=== PATIENT | male | born 1985 | race African-American/Black ===

== ENCOUNTER 2023-05-02 15:20 | Emergency (ER) | payer BC ==
[2023-05-02] MEDS ORDERED: MORPHINE 4 MG/ML SYR ONE ×2 (15:52→20:11)
[2023-05-02] MEDS ORDERED: ONDANSETRON 4 MG/2 ML VIAL ONE (15:52)
[2023-05-02] MEDS ORDERED: NA CHLORIDE 0.9% 1,000 ML ONE ×2 (15:52→20:11)
[2023-05-02 16:31] LABS: Specific Gravity 1.026 (1.005-1.030); Urine Bilirubin NEGATIVE (Negative); Urine Blood Negative (Negative); Urine Clarity Clear (Clear); Urine Color Light-Yellow (Yellow); Urine Glucose NEGATIVE (Negative); Urine Protein NEGATIVE (Negative); Urine Urobilinogen Normal (Normal); Urine pH 5.5 (5.0-7.0)
[2023-05-02 16:32] LABS: Absolute Lymphocytes (CBC) 1.3 K/uL (0.7-4.9); Hematocrit 41.2 % (39.6-49.0); Lymphocytes % 9.6 % (15.3-44.8); MCV 78.9 fL (80-100); MPV 8.1 fL (7.6-11.3); RBC Red Blood Cell Count 5.23 M/uL (4.33-5.43)
[2023-05-02 16:48] LABS: Albumin 3.7 g/dL (3.4-5.0); Bilirubin Total 0.5 mg/dL (0.2-1.0); Potassium 3.6 mEq/L (3.5-5.1); Protein, Total 8.3 g/dL (6.4-8.2)
--- NOTE | 2023-05-02 19:12 | RAD REPORT ---
EXAM DESCRIPTION: CTAbdomen Pelvis W Contrast - 05/02/2023 6:47 pm CLINICAL HISTORY: Abdominal pain. RLQ PAIN COMPARISON: No comparisons TECHNIQUE: Biphasic CT imaging of the abdomen and pelvis was performed with 100 ml non-ionic IV cont rast. All CT scans are performed using dose optimization technique as appropriate and may include automated exposure control or mA/KV adjustment according to patient size. FINDINGS: The lung bases are clear. The liver, spleen, pancreas, adrenal glands and kidneys are within normal limits. No bowel obstruction, free air, free fluid or abscess. Significant inflammation is seen with wall thi ckening and mural edema involving the cecum and ascending colon compatible with colitis. The appendix is normal. A few mildly enlarged right lower quadrant lymph nodes. No suspicious bony findings. IMPRESSION: Moderately severe colitis is seen involving the cecum and ascending colon.
[2023-05-02] MEDS ORDERED: METRONIDAZOLE 500mg IVPB 500 MG/100 ML BAG IV ONE (20:11)
[2023-05-02] MEDS ORDERED: CIPROFLOXACIN 400mg IV 400 MG/200 ML BAG IV ONE (20:11)
--- NOTE | 2023-05-02 21:30 | ER ---
Nurse's Notes [facility] Name: Yana Blevins Age: 37 yrs Sex: Male : 1985 Arrival Date: 05/02/2023 Time: 15:20 Bed 14 Private MD: Diagnosis: Indeterminate colitis Presentation: 05/02 15:35 Chief complaint: Patient states: Pt reports RUQ abdominal pain onset yesterday while cm10 resting. Patient denies nausea and vomiting. Pt reports diarrhea X2 episodes today. Coronavirus screen: Vaccine status: Patient reports receiving the 2nd dose of the covid vaccine. 15:35 Method Of Arrival: Ambulatory cm10 15:35 Ebola Screen: No symptoms or risks identified at this time. cm10 15:36 Initial Sepsis Screen: Does the patient meet any 2 criteria? No. Patient's initial cm10 sepsis screen is negative. Does the patient have a suspected source of infection? No. Patient's initial sepsis screen is negative. Risk Assessment: Do you want to hurt yourself or someone else? Patient reports no desire to harm self or others. Onset of symptoms was May 01, 2023. 15:36 Acuity: VIRA 3 cm10 Triage Assessment: 15:37 General: Appears in no apparent distress. comfortable, Behavior is calm, cooperative, cm10 appropriate for age. Historical: - Allergies: 15:36 No Known Allergies; cm10 - Home Meds: 15:36 None [Active]; cm10 - PMHx: 15:36 None; cm10 - PSHx: 15:36 None; cm10 - Immunization history:: Adult Immunizations unknown. - Social history:: Smoking status: unknown. Screenin:56 [facility] ED Fall Risk Assessment (Adult) History of falling in the last 3 months, kc6 including since admission No falls in past 3 months (0 pts) Confusion or Disorientation No (0 pts) Intoxicated or Sedated No (0 pts) Impaired Gait No (0 pts) Mobility Assist Device Used No (0 pt) Altered Elimination No (0 pt) Score/Fall Risk Level 0 - 2 = Low Risk Oriented to surroundings, Maintained a safe environment, Educated pt \T\ family on fall prevention, incl call for assistance when getting out of bed, Assessed \T\ reinforced patient's understanding of fall precautions, Hourly rounding (assess needs \T\ fall precautionary measures) done. Abuse screen: Denies threats or abuse. Denies injuries from another. Nutritional screening: No deficits noted. Tuberculosis screening: No symptoms or risk factors identified. Assessment: 15:56 General: Appears in no apparent distress. comfortable, Behavior is calm, cooperative, kc6 appropriate for age. Pain: Complains of pain in right upper quadrant. Neuro: Level of Consciousness is awake, alert, obeys commands, Oriented to person, place, time, situation, Appropriate for age. Cardiovascular: Capillary refill < 3 seconds. Respiratory: Airway is patent Trachea midline Respiratory effort is even, unlabored, Respiratory pattern is regular, symmetrical. GI: Abdomen is flat, non-distended, Bowel sounds present X 4 quads. Abd is soft X 4 quads Abdomen is tender to palpation in right upper quadrant Reports diarrhea, Patient currently denies nausea, vomiting. 16:51 Reassessment: Patient appears in no apparent distress at this time. No changes from kc6 previously documented assessment. Patient and/or family updated on plan of care and expected duration. Pain level reassessed. Patient is alert, oriented x 3, equal unlabored respirations, skin warm/dry/pink. Patient states feeling better. Patient states symptoms have improved. 17:38 Reassessment: Patient appears in no apparent distress at this time. No changes from kc6 previously documented assessment. Patient and/or family updated on plan of care and expected duration. Pain level reassessed. Patient is alert, oriented x 3, equal unlabored respirations, skin warm/dry/pink. 18:32 Reassessment: Patient appears in no apparent distress at this time. No changes from kc6 previously documented assessment. Patient and/or family updated on plan of care and expected duration. Pain level reassessed. Patient is alert, oriented x 3, equal unlabored respirations, skin warm/dry/pink. 19:15 Reassessment: Patient appears in no apparent distress at this time. Patient and/or jb4 family updated on plan of care and expected duration. Pain level reassessed. Patient is alert, oriented x 3, equal unlabored respirations, skin warm/dry/pink. 20:30 Reassessment: Patient appears in no apparent distress at this time. Patient and/or jb4 family updated on plan of care and expected duration. Pain level reassessed. Patient is alert, oriented x 3, equal unlabored respirations, skin warm/dry/pink. 21:40 Reassessment: Patient appears in no apparent distress at this time. Patient and/or jb4 family updated on plan of care and expected duration. Pain level reassessed. Patient is alert, oriented x 3, equal unlabored respirations, skin warm/dry/pink. Patient states feeling better. Vital Signs: 15:35 BP 118 / 73; Pulse 65; Resp 18; Temp 99.5(O); Pulse Ox 100% on R/A; Weight 64.86 kg cm10 (R); Height 6 ft. 1 in. (R); Pain 8/10; 16:51 BP 126 / 81; Pulse 68; Resp 18 S; Pulse Ox 99% on R/A; Pain 4/10; kc6 17:38 BP 116 / 80; Pulse 70; Resp 17 S; Pulse Ox 99% on R/A; kc6 18:33 BP 119 / 79; Pulse 60; Resp 17 S; Pulse Ox 100% on R/A; kc6 20:00 BP 124 / 78; Pulse 72; Resp 16; Pulse Ox 100% on R/A; jb4 21:15 BP 119 / 80; Pulse 60; Resp 16; Pulse Ox 98% on R/A; jb4 15:35 Body Mass Index 18.87 (64.86 kg, 185.42 cm) cm10 15:35 Pain Scale: Adult cm10 16:51 Pain Scale: Adult kc6 ED Course: 15:25 Patient arrived in ED. im 15:26 Marvel Jacob PA is PHCP. cp 15:26 Radha Spencer MD is Attending Physician. cp 15:36 Triage completed. cm10 15:36 Arm band placed on Patient placed in an exam room, on a stretcher. cm10 15:43 Krysta Durham, RN is Primary Nurse. ld1 15:43 Urinalysis w/ reflexes Sent. ld1 15:43 Lipase Sent. ld1 15:43 CMP Sent. ld1 15:43 CBC with Diff Sent. ld1 15:47 Charmaine Barrera, CARLYN is Primary Nurse. kc6 15:50 Inserted saline lock: 20 gauge in right upper arm, using aseptic technique. Blood ld1 collected. 15:56 Patient has correct armband on for positive identification. Bed in low position. Call kc6 light in reach. Side rails up X2. Adult w/ patient. 18:48 CT Abd/Pelvis - PO and IV Contrast In Process Unspecified. EDMS 20:00 Inserted saline lock: 20 gauge in left forearm, using aseptic technique. jb4 20:00 First set of blood cultures drawn by me. jb4 20:15 Second set of blood cultures drawn by me. jb4 21:28 Joni Sun MD is Referral Physician. cp 21:41 No provider procedures requiring assistance completed. IV discontinued, intact, jb4 bleeding controlled, No redness/swelling at site. Pressure dressing applied. Administered Medications: 15:49 Drug: NS 0.9% IV 1000 ml Route: IV; Rate: 1 bolus; Site: right upper arm; ld1 16:52 Follow up: Response: No adverse reaction; IV Status: Completed infusion; IV Intake: kc6 1000ml 15:49 Drug: Ondansetron IVP 4 mg Route: IVP; Site: right upper arm; ld1 16:52 Follow up: Response: No adverse reaction kc6 15:50 Drug: morphine IVP or IV 4 mg Route: IVP; Infused Over: 4 mins; Site: right upper arm; ld1 16:51 Follow up: Response: No adverse reaction; Pain is decreased; RASS: Alert and Calm (0) kc6 20:08 Drug: NS 0.9% IV 1000 ml Route: IV; Rate: 1 bolus; Site: right antecubital; jb4 20:08 Drug: morphine IVP or IV 4 mg Route: IVP; Infused Over: 4 mins; Site: right antecubital;jb4 20:27 Drug: Ciprofloxacin IVPB 400 mg Volume: 200 ml; Route: IVPB; Infused Over: 60 mins; jb4 Site: right antecubital; 20:27 Drug: metroNIDAZOLE IVPB 500 mg Volume: 100 ml; Route: IVPB; Infused Over: 30 mins; jb4 Site: left forearm; Medication: 21:15 VIS not applicable for this client. jb4 Intake: 16:52 IV: 1000ml; Total: 1000ml. kc6 Outcome: 21:29 Discharge ordered by . cp 21:41 Discharged to home ambulatory. jb4 21:41 Condition: stable 21:41 Discharge instructions given to patient, Instructed on discharge instructions, follow up and referral plans. no drinking with medication, medication usage, Demonstrated understanding of instructions, follow-up care, medications, Prescriptions given X 4. 21:41 Patient left the ED. jb4 Signatures: Dispatcher [employer] EDMS Marvel Jacob PA PA cp Bryson, James RN RN jb4 Krysta Durham RN RN ld1 Charmaine Barrera RN RN kc6 Rylee Cisneros Clarissa RN RN cm10
--- NOTE | 2023-05-02 21:30 | EDPHYS ---
Physician Documentation [facility] Name: Yana Blevins Age: 37 yrs Sex: Male : 1985 Arrival Date: 05/02/2023 Time: 15:20 Bed 14 Private MD: ED Physician Radha Spencer HPI: 05/02 15:45 This 37 yrs old Black Male presents to ER via Ambulatory with complaints of Abdominal cp Pain. 15:45 The patient presents with abdominal pain. Onset: The symptoms/episode began/occurred cp yesterday, and became worse today. The symptoms radiate to right back. Associated signs and symptoms: Pertinent positives: 2 episodes of diarrhea, Pertinent negatives: fever, testicular pain, vomiting. The symptoms are described as constant. Modifying factors: the symptoms are aggravated by pressure. 15:45 Severity of pain: in the emergency department the pain is unchanged despite home cp interventions. 15:45 The patient has not experienced similar symptoms in the past. cp Historical: - Allergies: 15:36 No Known Allergies; cm10 - Home Meds: 15:36 None [Active]; cm10 - PMHx: 15:36 None; cm10 - PSHx: 15:36 None; cm10 - Immunization history:: Adult Immunizations unknown. - Social history:: Smoking status: unknown. ROS: 15:50 Constitutional: Negative for body aches, chills, fever, poor PO intake. cp 15:50 Eyes: Negative for injury, pain, redness, and discharge. cp 15:50 ENT: Negative for drainage from ear(s), ear pain, sore throat, difficulty swallowing, difficulty handling secretions. 15:50 Cardiovascular: Negative for chest pain. 15:50 Respiratory: Negative for cough, shortness of breath, wheezing. 15:50 Abdomen/GI: Positive for abdominal pain, diarrhea, Negative for vomiting. 15:50 Back: Positive for radiated pain. 15:50 : Negative for urinary symptoms, testicular pain 15:50 Neuro: Negative for altered mental status, dizziness, headache, weakness. 15:50 All other systems are negative. Exam: 15:55 Constitutional: The patient appears in no acute distress, alert, awake, non-toxic, well cp developed, well nourished, uncomfortable. 15:55 Head/Face: Normocephalic, atraumatic. cp 15:55 Eyes: Periorbital structures: appear normal, Conjunctiva: normal, no exudate, no injection, Sclera: no appreciated abnormality, Lids and lashes: appear normal, bilaterally. 15:55 ENT: External ear(s): are unremarkable, Nose: is normal, Mouth: Lips: moist, Oral mucosa: pink and intact, moist, Posterior pharynx: is normal, airway is patent, no erythema, no exudate. 15:55 Chest/axilla: Inspection: normal. 15:55 Cardiovascular: Rate: normal, Rhythm: regular. 15:55 Respiratory: the patient does not display signs of respiratory distress, Respirations: normal, no use of accessory muscles, no retractions, labored breathing, is not present, Breath sounds: are clear throughout, no decreased breath sounds, no stridor, no wheezing. 15:55 Abdomen/GI: Inspection: abdomen appears normal, Bowel sounds: active, all quadrants, Palpation: soft, in all quadrants, moderate abdominal tenderness, in the right lower quadrant, voluntary guarding, is elicited in the right lower quadrant. 15:55 Back: pain, that is mild, of the right low back, ROM is normal. 15:55 Skin: no rash present. 15:55 Neuro: Orientation: to person, place \T\ time. Mentation: is normal, Motor: moves all fours, strength is normal. Vital Signs: 15:35 BP 118 / 73; Pulse 65; Resp 18; Temp 99.5(O); Pulse Ox 100% on R/A; Weight 64.86 kg cm10 (R); Height 6 ft. 1 in. (R); Pain 8/10; 16:51 BP 126 / 81; Pulse 68; Resp 18 S; Pulse Ox 99% on R/A; Pain 4/10; kc6 17:38 BP 116 / 80; Pulse 70; Resp 17 S; Pulse Ox 99% on R/A; kc6 18:33 BP 119 / 79; Pulse 60; Resp 17 S; Pulse Ox 100% on R/A; kc6 20:00 BP 124 / 78; Pulse 72; Resp 16; Pulse Ox 100% on R/A; jb4 21:15 BP 119 / 80; Pulse 60; Resp 16; Pulse Ox 98% on R/A; jb4 15:35 Body Mass Index 18.87 (64.86 kg, 185.42 cm) cm10 15:35 Pain Scale: Adult cm10 16:51 Pain Scale: Adult kc6 MDM: 15:35 Patient medically screened. cp 16:00 Differential diagnosis: appendicitis, Cholelithiasis, diverticulitis, pancreatitis, cp Pyelonephritis, Testicular Torsion, Ureterolithiasis, urinary tract infection, colitis. 21:28 Data reviewed: vital signs, nurses notes, lab test result(s), radiologic studies, CT cp scan. 21:28 Consideration of Admission/Observation Escalation of care including cp admission/observation considered. I considered the following discharge prescriptions or medication management in the emergency department Medications were administered in the Emergency Department. See MAR. Counseling: I had a detailed discussion with the patient and/or guardian regarding: the historical points, exam findings, and any diagnostic results supporting the discharge/admit diagnosis, lab results, radiology results, the need for outpatient follow up, a mule spinner, to return to the emergency department if symptoms worsen or persist or if there are any questions or concerns that arise at home. Response to treatment: the patient's symptoms have markedly improved after treatment. ED course: VSS. Pain improved with meds. Will discharge to home for continued monitoring. 05/02 15:41 Order name: CBC with Diff; Complete Time: 16:50 cp 05/02 16:50 Interpretation: Normal except: WBC 13.80; HGB 13.1; MCV 78.9; MCH 25.1; MCHC 31.8; RDW cp 15.6; CARMEN% 84.9; LYM% 9.6; NEUT A 11.7. 05/02 15:41 Order name: CMP; Complete Time: 16:50 cp 05/02 15:41 Order name: Lipase; Complete Time: 16:50 cp 05/02 15:41 Order name: Urinalysis w/ reflexes; Complete Time: 16:50 cp 05/02 19:25 Order name: Lactate w/ 2H reflex if indic.; Complete Time: 21:26 05/02 21:26 Interpretation: Reviewed. 05/02 19:25 Order name: Blood Culture Adult (2) cp 05/02 15:41 Order name: CT Abd/Pelvis - PO and IV Contrast; Complete Time: 19:18 cp 05/02 15:41 Order name: IV Saline Lock; Complete Time: 15:43 cp 05/02 15:41 Order name: Labs collected and sent; Complete Time: 15:43 cp Administered Medications: 15:49 Drug: NS 0.9% IV 1000 ml Route: IV; Rate: 1 bolus; Site: right upper arm; ld1 16:52 Follow up: Response: No adverse reaction; IV Status: Completed infusion; IV Intake: kc6 1000ml 15:49 Drug: Ondansetron IVP 4 mg Route: IVP; Site: right upper arm; ld1 16:52 Follow up: Response: No adverse reaction kc6 15:50 Drug: morphine IVP or IV 4 mg Route: IVP; Infused Over: 4 mins; Site: right upper arm; ld1 16:51 Follow up: Response: No adverse reaction; Pain is decreased; RASS: Alert and Calm (0) kc6 20:08 Drug: NS 0.9% IV 1000 ml Route: IV; Rate: 1 bolus; Site: right antecubital; jb4 20:08 Drug: morphine IVP or IV 4 mg Route: IVP; Infused Over: 4 mins; Site: right antecubital;jb4 20:27 Drug: Ciprofloxacin IVPB 400 mg Volume: 200 ml; Route: IVPB; Infused Over: 60 mins; jb4 Site: right antecubital; 20:27 Drug: metroNIDAZOLE IVPB 500 mg Volume: 100 ml; Route: IVPB; Infused Over: 30 mins; jb4 Site: left forearm; Disposition Summary: 05/02/23 21:29 Discharge Ordered Location: Home cp Problem: new cp Symptoms: have improved cp Condition: Stable cp Diagnosis - Indeterminate colitis cp Followup: cp - With: Joni Sun MD - When: 2 - 3 days - Reason: Recheck today's complaints Discharge Instructions: - Discharge Summary Sheet cp - Colitis cp Forms: - Work release form cp - Medication Reconciliation Form cp - Thank You Letter cp - Antibiotic Education cp - Prescription Opioid Use cp Prescriptions: - Zofran 4 mg Oral Tablet - take 1 tablet by ORAL route every 12 hours As needed; 20 tablet; Refills: 0, cp Product Selection Permitted - Cipro 500 mg Oral Tablet - take 1 tablet by ORAL route every 12 hours for 7 days; 14 tablet; Refills: 0, cp Product Selection Permitted - Metronidazole 500 mg Oral Tablet - take 1 tablet by ORAL route every 8 hours; 30 tablet; Refills: 0, Product cp Selection Permitted - dicyclomine 20 mg Oral Tablet - take 1 tablet by ORAL route 4 times per day; 30 tablet; Refills: 0, Product cp Selection Permitted Signatures: Dispatcher [employer] Marvel Ott PA PA cp Bryson, James RN RN jb4 Krysta Durham RN RN ld1 Elizabet Bruno RN RN cm10 Charmaine Barrera RN kc6
[2023-05-02 22:09] VITALS: TEMP 99.5
[2023-05-02 22:18] VITALS: BP 119/80; O2SAT 98
== END 2023-05-02 21:41 | disposition home or self-care (01) ==
LOC: ER 15:20
DX: K52.3 Indeterminate colitis (principal)
CPT/HCPCS: 87040 ×2; 85025; 36415; 83605; 81003; 83690; 80053; 74177; 99284; Q9967; J2405; J0744; J7030 ×2